=== PATIENT | female | born 1955 | race Caucasian/White ===

== ENCOUNTER → 2018-08-15 | Day surgery (SDC) | payer OTHER ==
[2018-07-30 12:18] LABS: BASOPHILS % 0.1 % (0.0-1.0); EOSINOPHILS # (AUTO) 0.1 (0.0-0.4); EOSINOPHILS % 0.5 % (0.0-6.0); HEMOGLOBIN 13.6 g/dL (12.0-16.0); LYMPHOCYTES # (AUTO) 0.9 (1.0-3.2); LYMPHOCYTES % 8.5 % (18.0-39.1); MEAN CORPUSCULAR HEMOGLOBIN 26.2 pg (28-32); MEAN CORPUSCULAR HGB CONC 31.6 g/dL (31-35); MEAN CORPUSCULAR VOLUME 82.9 fL (81-99); MONOCYTES # (AUTO) 0.3 (0.2-0.8); MONOCYTES % 2.9 % (4.4-11.3); NEUTROPHILS # (AUTO) 9.4 (2.1-6.9); NEUTROPHILS % 87.8 % (38.7-80.0); PLATELET COUNT 269 x10e3/uL (140-360); RED BLOOD COUNT 5.19 x10e6/uL (3.6-5.1)
[~2018-08-15] MED LIST: ACETAMINOPHEN 1000 MG/100 ML IV ONE; ALLERGY RELIEF10 M1 PO; ASPIR 8181 MG PO; BACITRACIN 50,000 UNIT VIAL ONE; BUPIVACAINE HCL 0.5% INJ 30 ML VIAL INJ ONE; CALCIUM PO; CEFAZOLIN SOD 2 GM/D5W 50ML 50 ML IV ONE; DEXAMETHASONE SOD PHOS INJ 4 MG/ML VIAL ONE; FENTANYL CITRATE/PF 100MCG/2 ML INJ ONE; GLYCOPYRROLATE INJ 1MG/ 5 ML SYR ONE; HYDRALAZINE HCL 20 MG/ML VIAL ONE; KETOROLAC TROMETHAMINE 30 MG/ML VIAL ONE; LIDOCAINE HCL 2% LOCAL INJ 5 ML SDV VIAL INJ ONE; MEPERIDINE HCL INJ 25 MG/ML VIAL ONE; MIDAZOLAM HCL 2 MG/2 ML VIAL ONE; NEOSTIGMINE 5 MG/5ML SYR ONE; ONDANSETRON HCL INJ 2 MG/ML VIAL ONE; PROPOFOL IV EMULSION 10 MG/ML 20 ML VIAL ONE; RED YEAST RICE600 MG PO; ROCURONIUM BROMIDE 10 MG/ML 5ML VIAL ONE; SEVOFLURANE INHAL SOLN 250 ML PEN BTL ONE; VIT B12 INJ INJ; VIT B12 PO; VIT D3 PO
--- OUTSIDE RECORDS SUMMARY | 2018-08-15 05:31 | XMS REPORT ---
Author Author Shavonne Malagon [facility] eClinicalWorks Address Unknown Phone Unavailable Care Team Providers Care Manager Of Internal Audit Name Role Phone Rodriguez Shavonne Collier Unavailable Encounters Encounter Location Date lab orders [facility] May 11, 2016 Problems Problem Type Condition ICD-9 Code Onset Dates Condition Status Problem Osteoporosis M81.0 Active Problem Vitamin D deficiency E55.9 Active Problem Low vitamin B12 level E53.8 Active Assessment Vitamin D deficiency E55.9 Active Assessment Routine general medical examination at a health care facility Z00.00 Active Assessment Low vitamin B12 level E53.8 Active Assessment Osteoporosis M81.0 Active Social History Social History Element Qualifiers Date Reported Occupation: . 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 Status , Is latvian your primary language? Yes Apr 19, 2016 Flu Vaccine: . 2015, will receive today Apr 19, 2016 children . 2 sons Apr 19, 2016 Depression Screening: . negative Apr 19, 2016 Tobacco Use: . Are you a: never smoker Apr 19, 2016 Use of recreational / street drugs? . Answer: No Apr 19, 2016 Last Colonoscopy: . 2009-normal Apr 19, 2016 Smoke Exposure: . Second Hand Smoke Exposure: No Apr 19, 2016 Marital Status: single. Apr 19, 2016 Caffeine intake? . Status: Yes, What type: Tea, Soft Drinks Apr 19, 2016 Do you exercise? . Answer: Yes, Type: cardio, walking, weight lifting Apr 19, 2016 Fall Risk: . none in the past year Apr 19, 2016 Last Bone Density: . 12/2015-osteoporosis Apr 19, 2016 Do you drink alcohol? . Status: No Apr 19, 2016 Summary Purpose Space MonkeyinicalWorks Submission
--- OUTSIDE RECORDS SUMMARY | 2018-08-15 05:31 | XMS REPORT ---
Author Author Danielle Jefferson [facility] eClinicalWorks Address Unknown Phone Unavailable Care Team Providers Care Java [email or web address] Software Engineer Name Role Phone Ronny Danielle Unavailable Allergies, Adverse Reactions, Alerts Substance Reaction Event Type Cipro swelling of tongue, mouth and lips Drug Allergy Encounters Encounter Location Date lab orders [facility] May 11, 2016 LAB RESULTS [facility] Jun 14, 2016 Sore throat [facility] Jul 25, 2016 Problems Problem Type Condition ICD-9 Code Onset Dates Condition Status Problem Hyperlipidemia, unspecified hyperlipidemia type E78.5 Active Problem Chronic fatigue R53.82 Active Problem Essential hypertension I10 Active Problem Vitamin D deficiency E55.9 Active Assessment Pharyngitis, unspecified etiology J02.9 Active Problem Low vitamin B12 level E53.8 Active Problem Osteoporosis M81.0 Active Medications Medication Code System Code Instructions Start Date End Date Status Dosage Diflucan [facility] [address]-42 100 MG Orally Once a day Jul 25, 2016 Jul 28, 2016 Active 1 tablet Vitamin E [facility] [address]-65 1000 UNIT Orally Once a day Active 1 capsule Red Yeast Rice [facility] 58378-98182 500 MG/0.5GM Orally Active Unknown Horse [place] [facility] 78367-45043 300 MG Orally Active Unknown B-12 [facility] [address]-21 1000 MCG/ML intramuscularly once per month May 30, 2019 Active 1ml Lamisil [facility] [address]-90 250 MG Orally Once a day Jun 14, 2016 Sep 12, 2016 Active 1 tablet Citracal + D Unknown 0 250-62.5 MG-UNIT Orally Active Unknown Magnesium [facility] [address]-26 300 MG Orally Once a day Active 1 capsule with a meal Rustam Aspirin [facility] [address]-22 81 MG Orally Once a day Active 1 tablet Evening Raymond Oil [facility] 544[address]-92974 1000 MG Orally Active Unknown Amoxicillin [facility] [address]-32 500 MG Orally every 12 hrs Jul 25, 2016 Aug 04, 2016 Active 1 capsule Vitamin D3 [facility] 41135-[address]99 35128 UNIT Orally Active Unknown Social History Social History Element Qualifiers Date 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 Status , Is arabic your primary language? Yes Jul 25, 2016 Flu Vaccine: . 2014Jul 25, 2016 children . 2 sons Jul 25, 2016 Depression Screening: . negative Jul 25, 2016 Tobacco Use: . Are you a: never smoker Jul 25, 2016 Use of recreational / street drugs? . Answer: No Jul 25, 2016 Last Colonoscopy: . 2009-normal Jul 25, 2016 Smoke Exposure: . Second Hand Smoke Exposure: No Jul 25, 2016 Marital Status: single. Jul 25, 2016 Caffeine intake? . Status: Yes, What type: Tea, Soft Drinks Jul 25, 2016 Do you exercise? . Answer: Yes, Type: cardio, walking, weight lifting Jul 25, 2016 Fall Risk: . none in the past year Jul 25, 2016 Last Bone Density: . 12/2015-osteoporosis Jul 25, 2016 Do you drink alcohol? . Status: No Jul 25, 2016 Family history Qualifier Description Comment Date Reported Maternal Grandmother Comment not available Jul 25, 2016 Paternal Grandmother Comment not available Jul 25, 2016 Siblings alive asthma(sister) SON: Skin cancer- Stage 2 Jul 25, 2016 Maternal Grandfather heart attack Jul 25, 2016 Children Comment not available Jul 25, 2016 Father alive skin cancer Jul 25, 2016 Paternal Grandfather Comment not available Jul 25, 2016 Mother alive heart attack Jul 25, 2016 Other: Comment not available Jul 25, 2016 Vital Signs Date/Time: Jul 25, 2016 Weight 137 lbs Height 62 in Cardiac Monitoring Heart Rate 89 /min Blood Pressure Diastolic 85 mm Hg Blood Pressure Systolic 125 mm Hg Summary Purpose eClinicalWorks Submission
--- OUTSIDE RECORDS SUMMARY | 2018-08-15 05:31 | XMS REPORT | Continuity of Care Document ---
Author Author [facility] Interface Address Unknown Phone Unavailable Problems Problem Status Onset Date Classification Date Reported Comments Source Osteoporosis Active Problem 08/31/2016 [facility] Vitamin D deficiency Active Problem 08/31/2016 [facility] Low vitamin B12 level Active Problem 08/31/2016 [facility] Routine general medical examination at a health care facility Active Diagnosis 05/13/2016 [facility] Hyperlipidemia, unspecified hyperlipidemia type Active Problem 08/31/2016 [facility] Chronic fatigue Active Problem 08/31/2016 [facility] Essential hypertension Active Problem 08/31/2016 [facility] Upper respiratory tract infection, unspecified type Active Diagnosis 08/31/2016 [facility] Sore throat Active Diagnosis 08/31/2016 [facility] Onychomycosis Active Diagnosis 06/17/2016 [facility] Pharyngitis, unspecified etiology Active Diagnosis 07/28/2016 [facility] Medications Medication Details Route Status Patient Instructions Ordering Provider Order Date Source B-12 1ml intramuscularly Active 1000 MCG/ML intramuscularly once per month Ronny 05/30/2019 [facility] Diflucan 1 tablet Orally Active 150 MG Orally Once a day [place] 08/29/2016 [facility] Zithromax Z-Liam 2 tablets on the first day, then 1 tablet daily for 4 days Orally Active 250 MG Orally Once a day Ronny 08/26/2016 [facility] Bromfed DM 10 ml as needed Orally Active 30-2-10 MG/5ML Orally every 6 hrs [place] 08/26/2016 [facility] Diflucan 1 tablet Orally Active 100 MG Orally Once a day [place] 07/25/2016 [facility] Amoxicillin 1 capsule Orally Active 500 MG Orally every 12 hrs Ronny 07/25/2016 [facility] Lamisil 1 tablet Orally Active 250 MG Orally Once a day Ronny 06/14/2016 [facility] Magnesium 1 capsule with a meal Orally Active 300 MG Orally Once a day Ronny [facility] Evening [place]anna Oil Unknown Orally Active 1000 MG Orally Ronny [facility] Horse [place] Unknown Orally Active 300 MG Orally Ronny [facility] Rustam Aspirin EC Low Dose 1 tablet Orally Active 81 MG Orally Once a day Ronny [facility] Citracal + D Unknown Orally Active 250-62.5 MG-UNIT Orally Ronny [facility] Vitamin D3 Unknown Orally Active 37884 UNIT Orally Ronny [facility] Vitamin E 1 capsule Orally Active 1000 UNIT Orally Once a day Ronny [facility] Red Yeast Rice Unknown Orally Active 500 MG/0.5GM Orally Ronny [facility] Allergies, Adverse Reactions, Alerts Substance Category Reaction Severity Reaction type Status Date Reported Comments Source Cipro Adverse Reaction swelling of tongue, mouth and lips Adverse Reaction Active 08/26/2016 [facility] Immunizations Immunization Date Given Site Status Last Updated Comments Source Results Order Name Results Value Reference Range Date Interpretation Comments Source Vital Signs Vital Sign Value Date Comments Source Weight 136 08/26/2016 [facility] Height 62 08/26/2016 [facility] Heart Rate 77 08/26/2016 [facility] Diastolic (mm Hg) 77 08/26/2016 [facility] Systolic (mm Hg) 115 08/26/2016 [facility] Weight 137 07/25/2016 [facility] Height 62 07/25/2016 [facility] Heart Rate 89 07/25/2016 [facility] Diastolic (mm Hg) 85 07/25/2016 [facility] Systolic (mm Hg) 125 07/25/2016 [facility] Weight 141 06/14/2016 [facility] Height 62 06/14/2016 [facility] Heart Rate 76 06/14/2016 [facility] Diastolic (mm Hg) 84 06/14/2016 [facility] Systolic (mm Hg) 152 06/14/2016 [facility] Encounters Location Location Details Encounter Type Encounter Number Reason For Visit Attending Provider ADM Date DC Date Status Source [facility] lab orders [id number] 05/11/2016 05/11/2016 [facility] lab orders [id number] 05/11/2016 05/11/2016 [facility] lab orders [id number] 05/11/2016 05/11/2016 [facility] lab orders [id number] 05/11/2016 05/11/2016 [facility] lab orders [id number] 05/11/2016 05/11/2016 [facility] LAB RESULTS [id number] 06/14/2016 06/14/2016 [facility] LAB RESULTS [id number] 06/14/2016 06/14/2016 [facility] LAB RESULTS [id number] 06/14/2016 06/14/2016 [facility] LAB RESULTS [id number] 06/14/2016 06/14/2016 [facility] Sore throat [id number] 07/25/2016 07/25/2016 [facility] Sore throat [id number] 07/25/2016 07/25/2016 [facility] Sore throat [id number] 07/25/2016 07/25/2016 [facility] sore throat [id number] 08/26/2016 08/26/2016 [facility] Unknown [id number] 08/29/2016 08/29/2016 [facility] Unknown [id number] 08/29/2016 08/29/2016 [facility] Procedures Procedure Code Date Perfomer Comments Source
--- OUTSIDE RECORDS SUMMARY | 2018-08-15 05:31 | XMS REPORT ---
Author Author Danielle Jefferson [facility] eClinicalWorks Address Unknown Phone Unavailable Care Team Providers Care Precision Instrument Maker Name Role Phone Ronny Danielle Unavailable Encounters Encounter Location Date Unknown [facility] Aug 29, 2016 lab orders [facility] May 11, 2016 LAB RESULTS [facility] Jun 14, 2016 Sore throat [facility] Jul 25, [...] Start Date End Date Status Dosage Diflucan [facility] [address]-43 150 MG Orally Once a day Aug 29, 2016 Sep 01, 2016 Active 1 tablet Social History Social History Element Qualifiers Date 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 Status , Is mongolian your primary language? Yes Aug 26, 2016 Flu Vaccine: . 2015 Aug 26, 2016 children . 2 sons Aug 26, 2016 Depression Screening: . negative Aug 26, 2016 Tobacco Use: . Are you a: never smoker Aug 26, 2016 Use of recreational / street drugs? . Answer: No Aug 26, 2016 Last Colonoscopy: . 2009-normal Aug 26, 2016 Smoke Exposure: . Second Hand Smoke Exposure: No Aug 26, 2016 Marital Status: single. Aug 26, 2016 Caffeine intake? . Status: Yes, What type: Tea, Soft Drinks Aug 26, 2016 Do you exercise? . Answer: Yes, Type: cardio, walking, weight lifting Aug 26, 2016 Fall Risk: . none in the past year Aug 26, 2016 Last Bone Density: . 12/2015-osteoporosis Aug 26, 2016 Do you drink alcohol? . Status: No Aug 26, 2016 Summary Purpose eClinicalWorks Submission
--- OUTSIDE RECORDS SUMMARY | 2018-08-15 05:31 | XMS REPORT ---
Author Author Shavonne Malagon [facility] eClinicalWorks Address Unknown Phone Unavailable Care Team Providers Care Engineer Internship Name Role Phone Rodriguez Collier Shavonne CP Unavailable Allergies, Adverse Reactions, Alerts Substance Reaction Event Type Cipro swelling of tongue, mouth and lips Drug Allergy Encounters Encounter Location Date lab orders [facility] May 11, 2016 LAB RESULTS [facility] Jun 14, 2016 Problems Problem Type Condition ICD-9 Code Onset Dates Condition Status Assessment Onychomycosis B35.1 Active Assessment Essential hypertension I10 Active Assessment Osteoporosis M81.0 Active Assessment Chronic fatigue R53.82 Active Problem Hyperlipidemia, unspecified hyperlipidemia type E78.5 Active Problem Chronic fatigue R53.82 Active Problem Essential hypertension I10 Active Problem Vitamin D deficiency E55.9 Active Assessment Hyperlipidemia, unspecified hyperlipidemia type E78.5 Active Problem Low vitamin B12 level E53.8 Active Problem Osteoporosis M81.0 Active Medications Medication Code System Code Instructions Start Date End Date Status Dosage Magnesium [facility] [address]-27 300 MG Orally Once a day Active 1 capsule with a meal Vitamin D3 [facility] [address] 41157 UNIT Orally Active Unknown Citracal + D Unknown 0 250-62.5 MG-UNIT Orally Active Unknown Vitamin E [facility] [address]-39 1000 UNIT Orally Once a day Active 1 capsule Red Yeast Rice [facility] [address] 500 MG/0.5GM Orally Active Unknown Rustam Aspirin EC Low Dose [facility] [address]-24 81 MG Orally Once a day Active [address] 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 Status , Is belizean your primary language? Yes Jun 14, 2016 Flu Vaccine: . 2015 Jun 14, 2016 children . 2 sons Jun 14, 2016 Depression Screening: . negative Jun 14, 2016 Tobacco Use: . Are you a: never smoker Jun 14, 2016 Use of recreational / street drugs? . Answer: No Jun 14, 2016 Last Colonoscopy: . 2009-normal Jun 14, 2016 Smoke Exposure: . Second Hand Smoke Exposure: No Jun 14, 2016 Marital Status: single. Jun 14, 2016 Caffeine intake? . Status: Yes, What type: Tea, Soft Drinks Jun 14, 2016 Do you exercise? . Answer: Yes, Type: cardio, walking, weight lifting Jun 14, 2016 Fall Risk: . none in the past year Jun 14, 2016 Last Bone Density: . 12/2015-osteoporosis Jun 14, 2016 Do you drink alcohol? . Status: No Jun 14, 2016 Family history Qualifier Description Comment Date Reported Maternal Grandmother Comment not available Jun 14, 2016 Paternal Grandmother Comment not available Jun 14, 2016 Siblings alive asthma(sister) SON: Skin cancer- Stage 2 Jun 14, 2016 Maternal Grandfather heart attack Jun 14, 2016 Children Comment not available Jun 14, 2016 Father alive skin cancer Jun 14, 2016 Paternal Grandfather Comment not available Jun 14, 2016 Mother alive heart attack Jun 14, 2016 Other: Comment not available Jun 14, 2016 Vital Signs Date/Time: Jun 14, 2016 Weight 141 lbs Height 62 in Cardiac Monitoring Heart Rate 76 /min Blood Pressure Diastolic 84 mm Hg Blood Pressure Systolic 152 mm Hg Summary Purpose eClinicalWorks Submission
--- OUTSIDE RECORDS SUMMARY | 2018-08-15 05:31 | XMS REPORT ---
Author Author Danielle Jefferson [facility] eClinicalWorks Address Unknown Phone Unavailable Care Team Providers Care Tool Repairer Bench Name Role Phone Ronny Danielle Unavailable Allergies, Adverse Reactions, Alerts Substance Reaction Event Type Cipro swelling of tongue, mouth and lips Drug Allergy Encounters Encounter Location Date Unknown [facility] Aug 29, 2016 sore throat [facility] Aug 26, 2016 lab orders [facility] May 11, 2016 LAB RESULTS [facility] Jun 14, 2016 Sore throat [facility] Jul 25, 2016 Problems Problem Type Condition ICD-9 Code Onset Dates Condition Status Assessment Upper respiratory tract infection, unspecified type J06.9 Active Problem Hyperlipidemia, unspecified hyperlipidemia type E78.5 Active Problem Chronic fatigue R53.82 Active Problem Essential hypertension I10 Active Problem Vitamin D deficiency E55.9 Active Assessment Sore throat J02.9 Active Problem Low vitamin B12 level E53.8 Active Problem Osteoporosis M81.0 Active Medications Medication Code System Code Instructions Start Date End Date Status Dosage B-12 [facility] [address]-02 1000 MCG/ML intramuscularly once per month May 30, 2019 Active 1ml Magnesium [facility] [address]-12 300 MG Orally Once a day Active 1 capsule with a meal Zithromax Z-Liam [facility] [address]-04 250 MG Orally Once a day Aug 26, 2016 Aug 31, 2016 Active 2 tablets on the first day, then 1 tablet daily for 4 days Bromfed DM [facility] [address]-30 30-2-10 MG/5ML Orally every 6 hrs Aug 26, 2016 Sep 05, 2016 Active 10 ml as needed Evening [place] Path Oil [facility] [address] 1000 MG Orally Active Unknown Horse [place] [facility] [address] 300 MG Orally Active Unknown Rustam Aspirin EC Low Dose 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 Status , Is pitcairn islander your primary language? Yes Aug 26, 2016 Flu Vaccine: . 2014Aug 26, 2016 children . 2 sons Aug [...] alcohol? . Status: No Aug 26, 2016 Vital Signs Date/Time: Aug 26, 2016 Weight 136 lbs Height 62 in Cardiac Monitoring Heart Rate 77 /min Blood Pressure Diastolic 77 mm Hg Blood Pressure Systolic 115 mm Hg Results CBC RAPID STREP Summary Purpose eClinicalWorks Submission
--- NOTE | 2018-08-15 08:48 | Operative Report ---
DATE OF PROCEDURE: August 15, 2018 VESSEL ENGINEER: None. PREOPERATIVE DIAGNOSIS: Ventral hernia. POSTOPERATIVE DIAGNOSIS: Ventral hernia. PROCEDURE: Repair of ventral hernia. ANESTHESIA: General. INDICATIONS AND FINDINGS: Patient is a 63-year-old female who complains of painful bulge in the upper abdomen. At surgery, patient was found to have hernia in the upper midline of the abdomen containing omentum with a fascial defect that was approximately 1 cm. TECHNIQUE: After adequate general endotracheal anesthesia with patient in supine position, the abdomen was prepped and draped in sterile fashion with ChloraPrep solution. A transverse incision was made over the area of the hernia, carried down through subcutaneous tissue. Herniated mass identified. This appeared to be preperitoneal fat in omentum. This was dissected free from the surrounding tissues down to the fascia and freed from the fascia throughout the circumference of the hernia defect. This was then reduced beneath the fascia. Fascial defect was about 1 cm. The hernia was then repaired directly transversely with a running suture of #0 Prolene. Hemostasis in the wound was seen to be adequate. The wound was then infiltrated with 0.5% Marcaine. Wound was inspected for hemostasis once again, which was seen to be adequate. The wound was then closed with 3-0 Vicryl subcutaneous tissue and 4-0 Vicryl subcuticular to the skin. Dermabond and sterile dressing were applied. The patient tolerated the procedure well. Estimated blood loss was less than 5 mL. There were no complications. All counts were correct. Patient was taken to the recovery room in satisfactory condition. Job#: [id number] cc:DR. MORIN (SP?)
[2018-08-15 09:30] VITALS: BP 137/79
== END | disposition home or self-care (01) ==
LOC: OR 05:27
PROVIDERS: ATTEND Surgery
DX: K43.9 Ventral hernia without obstruction or gangrene (principal); K21.9 Gastro-esophageal reflux disease without esophagitis; M81.0 Age-related osteoporosis without current pathological fracture; E53.8 Deficiency of other specified B group vitamins; Z88.6 Allergy status to analgesic agent; Z88.1 Allergy status to other antibiotic agents; Z01.810 Encounter for preprocedural cardiovascular examination; Z01.812 Encounter for preprocedural laboratory examination; Z79.82 Long term (current) use of aspirin
CPT/HCPCS: 36415; 49560; 85025; 93005; J0131; J0360; J0690; J1100; J1885; J2001; J2175; J2250; J2405; J2704; J3490

== ENCOUNTER 2018-08-20 01:06 | Emergency (ER) | payer OTHER ==
[~2018-08-20] VITALS: Ht 167.6 cm; Wt 68.0 kg
[~2018-08-20 01:06] MED LIST changes: -ACETAMINOPHEN 1000 MG/100 ML IV ONE; -BACITRACIN 50,000 UNIT VIAL ONE; -BUPIVACAINE HCL 0.5% INJ 30 ML VIAL INJ ONE; -CEFAZOLIN SOD 2 GM/D5W 50ML 50 ML IV ONE; -DEXAMETHASONE SOD PHOS INJ 4 MG/ML VIAL ONE; -FENTANYL CITRATE/PF 100MCG/2 ML INJ ONE; -GLYCOPYRROLATE INJ 1MG/ 5 ML SYR ONE; -HYDRALAZINE HCL 20 MG/ML VIAL ONE; -KETOROLAC TROMETHAMINE 30 MG/ML VIAL ONE; -LIDOCAINE HCL 2% LOCAL INJ 5 ML SDV VIAL INJ ONE; -MEPERIDINE HCL INJ 25 MG/ML VIAL ONE; -MIDAZOLAM HCL 2 MG/2 ML VIAL ONE; -NEOSTIGMINE 5 MG/5ML SYR ONE; -ONDANSETRON HCL INJ 2 MG/ML VIAL ONE; -PROPOFOL IV EMULSION 10 MG/ML 20 ML VIAL ONE; -ROCURONIUM BROMIDE 10 MG/ML 5ML VIAL ONE; -SEVOFLURANE INHAL SOLN 250 ML PEN BTL ONE
[2018-08-20] MEDS ORDERED: ONDANSETRON HCL INJ 2 MG/ML VIAL IV STA (01:20)
[2018-08-20] MEDS ORDERED: SODIUM CHLORIDE 0.9% 1000ML 1,000 ML IV SCH (01:30)
[2018-08-20] MEDS ORDERED: FENTANYL CITRATE/PF 100MCG/2 ML INJ IV ONE (01:30)
--- NOTE | 2018-08-20 01:50 | NUR ---
CLEAN LINENS PLACED ON BED - PT HAD INCONTINENCE EPISODE;
[2018-08-20] MEDS ORDERED: POTASSIUM CHLORIDE 10MEQ/100ML 100 ML IV STA (02:06)
[2018-08-20] MEDS ORDERED: POTASSIUM CHLORIDE 10MEQ/100ML 100 ML IV ONE (02:15)
[2018-08-20] MEDS ORDERED: PROMETHAZINE 12.5MG/ NACL 0.9% 12.5 MG/50 ML BAG IV ONE (02:30)
--- NOTE | 2018-08-20 02:30 | NUR ---
CLEAN LINENS PLACED ON BED - PT HAD INCONTINENCE EPISODE;
--- NOTE | 2018-08-20 03:01 | NUR ---
URINE CULTURE COLLECTED AND PLACED IN LAB [facility] FOR TRANSPORT
--- NOTE | 2018-08-20 03:03 | NUR ---
NEW WARM BLANKETS GIVEN TO PT
--- NOTE | 2018-08-20 03:45 | NUR ---
PTS BED LINENS CHANGED - PT HAD INCONTINENCE EPISODE.
--- NOTE | 2018-08-20 04:35 | Diagnostic Imaging Report ---
EXAM: CT Abdomen and Pelvis WITH contrast INDICATION: Abdominal pain. Post hernia surgery. ^[id number] ^[id number] COMPARISON: None. TECHNIQUE: Abdomen and pelvis were scanned utilizing a multidetector helical scanner from the lung base to the pubic symphysis after administration of IV contrast. Coronal and sagittal reformations were obtained. Routine protocol was performed. Scan was performed when during portal venous phase. IV CONTRAST: 100 mL of Isovue-370 ORAL CONTRAST: Water COMPLICATIONS: None RADIATION DOSE: Total DLP: 718.4 mGy*cm Estimated effective dose: (DLP x 0.015 x size factor) mSv Dose modulation, iterative reconstruction, and/or weight based adjustment of the mA/kV was utilized to reduce the radiation dose to as low as reasonably achievable. FINDINGS: LINES and TUBES: None. LOWER THORAX: Unremarkable HEPATOBILIARY: Multiple hepatic cysts, largest measures 3.4 cm adjacent to the gallbladder and 1.4 cm with a thin septation at the dome. No biliary ductal dilation. GALLBLADDER: No radio-opaque stones or sludge. No wall thickening. SPLEEN: No splenomegaly. PANCREAS: No focal masses or ductal dilatation. ADRENALS: No adrenal nodules KIDNEYS/URETERS: Kidneys enhance symmetrically. No hydronephrosis. No cystic or solid mass lesions. No stones. GI TRACT: Small hiatal hernia. Slight colonic wall thickening with liquid stool contents which may diarrhea. No abnormal distention or evidence of bowel obstruction. Appendix is not clearly identified. There is however no fat stranding or adenopathy in the right lower quadrant to suggest appendicitis. PELVIC ORGANS/BLADDER: Bladder is distended. Otherwise, unremarkable. LYMPH NODES: No lymphadenopathy. VESSELS: Unremarkable. PERITONEUM / RETROPERITONEUM: No free air or fluid. BONES: Unremarkable. SOFT TISSUES: Mild soft tissue stranding the epigastric midline soft tissues with a small focus of air. No drainable fluid collections. Stranding extends to the preperitoneal and intraperitoneal fat IMPRESSION: 1. Fat stranding in the epigastric region likely related to recent postoperative changes of reported hernia repair. A small focus of air is present, not unexpected if surgery was recent. No drainable fluid collections. 2. Slight colonic wall thickening with liquid stool contents may suggest mild colitis with diarrhea. Signed by: DR. William Wu MD on 08/20/2018 4:31 AM
--- NOTE | 2018-08-20 05:00 | NUR ---
PT HAD MODERATE SIZED BM IN BEDSIDE COMMODE
--- NOTE | 2018-08-20 05:53 | NUR ---
PT HAD LARGE SIZED BM IN BEDSIDE COMMODE
--- NOTE | 2018-08-20 07:48 | NUR ---
DR BOYLE SPOKE TO DR SARKIS HERR TO DISCHARGE PT HOME
== END 2018-08-20 07:48 | disposition home or self-care (01) ==
LOC: FSED 01:06
DX: R10.31 Right lower quadrant pain (principal); R10.32 Left lower quadrant pain; R11.2 Nausea with vomiting, unspecified; K59.00 Constipation, unspecified; K52.9 Noninfective gastroenteritis and colitis, unspecified
CPT/HCPCS: 74160; 80053; 81003; 85025; 99284; J2405; J2550; J3480; J7030

== ENCOUNTER → 2021-02-24 | Outpatient (CLI) | payer MEDICARE ==
[~2021-02-24] MED LIST changes: +IOPAMIDOL 370 MG/ML 200 ML INFUS..BTL INJ ONE; +METOPROLOL TARTRATE 25 MG TAB ONE; +METOPROLOL TARTRATE INJ 1 MG/ML VIAL ONE; +NITROGLYCERIN 0.4 MG SUBL ONE; +SODIUM CHLORIDE 0.9% 100 ML ONE
== END ==
LOC: CT 09:29
PROVIDERS: ATTEND Nurse Practitioner Family
DX: I20.8 Other forms of angina pectoris (principal); R94.39 Abnormal result of other cardiovascular function study
CPT/HCPCS: 75574; J7050; Q9967